=== PATIENT | female | born 1955 | race Caucasian/White ===

== ENCOUNTER 2019-03-22 13:12 | Outpatient (CLI) | payer BC | END 2019-03-22 23:59 | disposition home or self-care (01) | LOC: CFH 13:12 | PROVIDERS: ATTEND Obstetrics & Gynecology Gynecology | DX: Z12.31 Encounter for screening mammogram for malignant neoplasm of breast (principal) | CPT/HCPCS: 77067 ==

== ENCOUNTER → 2020-03-12 | Outpatient (CLI) | payer BC | END | disposition home or self-care (01) | LOC: CFH 08:59 | PROVIDERS: ATTEND Internal Medicine | DX: M51.37 Other intervertebral disc degeneration, lumbosacral region (principal); M47.817 Spondylosis without myelopathy or radiculopathy, lumbosacral region; M85.88 Other specified disorders of bone density and structure, other site; M48.07 Spinal stenosis, lumbosacral region; M43.17 Spondylolisthesis, lumbosacral region; M41.86 Other forms of scoliosis, lumbar region | CPT/HCPCS: 72100; 72131; 77080 ==

== ENCOUNTER 2020-04-02 12:31 | Outpatient (CLI) | payer BC | END 2020-04-02 23:59 | disposition home or self-care (01) | LOC: CFH 12:31 | PROVIDERS: ATTEND Obstetrics & Gynecology Gynecology | DX: Z12.31 Encounter for screening mammogram for malignant neoplasm of breast (principal) | CPT/HCPCS: 77063; 77067 ==

== ENCOUNTER 2021-03-06 12:31 | Inpatient (IN) | payer BC ==
[~2021-03-06] VITALS: Ht 162.6 cm; Wt 119.8 kg
--- NOTE | 2021-03-06 13:01 | NUR ---
PT CAME IN CO "SHARP PAIN BETWEEN MY BREASTS THAT STARTED LAST NIGHT BUT MELANIE HAD THIS BEFORE OF THE PAST COUPLE OF MONTHS". PT RESTING IN [facility]. EKG COMPLETE. CONNECTED TO MONITORING EQUIPMENT
[2021-03-06] MEDS ORDERED: ASPIRIN 81 MG TABLET CHEW ONE (13:04)
[2021-03-06 13:19] LABS: BASOPHILS % (AUTO) 1 % (0-1); EOSINOPHILS % (AUTO) 1 % (1-7); LYMPHOCYTES % (AUTO) 24 % (22-44); MEAN CORPUSCULAR HEMOGLOBIN 29.6 pg (27.0-34.8); MEAN CORPUSCULAR HGB CONC 33.5 g/dL (32.4-35.8); MEAN PLATELET VOLUME 8.2 fL (7.4-10.4); MONOCYTES % (AUTO) 6 % (2-9); NEUTROPHILS % (AUTO) 68 % (42-75); PLATELET COUNT 230 x10^3/uL (130-400); RED BLOOD COUNT 4.79 x10^6/uL (3.82-5.3)
[2021-03-06 13:26] LABS: ALANINE AMINOTRANSFERASE 23 U/L (12-78); ALBUMIN 3.1 g/dL (3.4-5.0); ANION GAP 6 mmol/L (5-15); CALCIUM 9.7 mg/dL (8.5-10.1); CHLORIDE 99 mmol/L (98-107); CREATININE 0.96 mg/dL (0.55-1.02)
[2021-03-06] MEDS ORDERED: ASPIRIN 81 MG TABLET CHEW PO ONE (13:30)
[2021-03-06 13:31] LABS: ALKALINE PHOSPHATASE 68 U/L (45-117); BILIRUBIN,TOTAL 0.6 mg/dL (0.2-1.0); TROPONIN I 0.019 ng/mL (0.000-0.045)
--- NOTE | 2021-03-06 13:37 | NUR ---
US IN WITH PT.
[2021-03-06 13:43] LABS: MICROSCOPIC NOT IND
[2021-03-06 14:00] LABS: PH, VENOUS 7.385 pH (7.320-7.420)
[2021-03-06] MEDS ORDERED: SODIUM CHLORIDE 0.9% 1,000ML IVBOLUS ONE (14:00)
[2021-03-06 14:01] LABS: O2 FLOW ROOM AIR L/min
--- NOTE | 2021-03-06 14:13 | NUR ---
covid test sent to lab. iv started. fluids infusing
[2021-03-06 14:47] LABS: ACETONE, SERUM Small (20mg/dL) (Negative)
[2021-03-06 15:44] VITALS: BP 138/88
[2021-03-06] MEDS ORDERED: LEVO75TA PO (17:50)
[2021-03-06 17:52] VITALS: BP 138/88
[2021-03-06] MEDS ORDERED: METF-688 PO (17:52)
[2021-03-06] MEDS ORDERED: ASPI81TA45 PO (18:07)
[2021-03-06] MEDS ORDERED: ONDANSETRON ODT 4 MG PO PRN (19:00)
[2021-03-06] MEDS ORDERED: hydrALAzine 20 MG/ML, 1ML IVPush PRN (19:00)
[2021-03-06] MEDS ORDERED: morphine SULFATE 10 MG/ML, 1ML IVPush PRN (19:00)
[2021-03-06] MEDS ORDERED: LORazepam 0.5MG TABLET PO PRN (19:00)
[2021-03-06] MEDS ORDERED: HYDROcodone/APAP 5/325 TABLET PO PRN (19:00)
[2021-03-06] MEDS ORDERED: NITROGLYCERIN 0.4 MG BOTTLE (25 TABS) SL PRN (19:00)
[2021-03-06] MEDS ORDERED: BISACODYL 10 MG SUPP PR PRN (19:00)
[2021-03-06] MEDS ORDERED: MELATONIN 5 MG TABLET PO PRN (19:00)
[2021-03-06] MEDS ORDERED: ACETAMINOPHEN 325 MG TABLET PO PRN (19:00)
[2021-03-06] MEDS ORDERED: ONDANSETRON 2MG/ML, 2ML IVPush PRN (19:00)
[2021-03-06] MEDS: ENOXAPARIN 40 MG/0.4 ML SQ SCH (19:47)
[2021-03-06] MEDS: POLYETHYLENE GLYCOL 17 GM PACKET PO SCH (19:48)
[2021-03-06 19:59] LABS: TROPONIN I < 0.015 ng/mL (0.000-0.045)
[2021-03-06] MEDS: INSULIN LISPRO 100 UNITS/ML, PEN SQ-INSULIN SCH (19:59)
[2021-03-06] MEDS: INSULIN GLARGINE 100 UNITS/ML, PEN SQ-INSULIN SCH (19:59)
[2021-03-06 20:00] VITALS: BP 126/76
[2021-03-06] MEDS ORDERED: OMNIPAQUE 350 MG/ML, 100ML BOTTLE ONE (20:48)
[2021-03-06 22:30] VITALS: BP 146/93
[2021-03-07 01:34] LABS: TROPONIN I 0.019 ng/mL (0.000-0.045)
[2021-03-07 03:00] VITALS: BP 128/72
[2021-03-07] MEDS: LEVOTHYROXINE 125 MCG TABLET PO SCH (05:34)
[2021-03-07 05:43] LABS: BASOPHILS % (AUTO) 1 % (0-1); EOSINOPHILS % (AUTO) 2 % (1-7); LYMPHOCYTES % (AUTO) 38 % (22-44); MEAN CORPUSCULAR HEMOGLOBIN 29.7 pg (27.0-34.8); MEAN CORPUSCULAR HGB CONC 33.6 g/dL (32.4-35.8); MEAN PLATELET VOLUME 8.2 fL (7.4-10.4); MONOCYTES % (AUTO) 7 % (2-9); NEUTROPHILS % (AUTO) 52 % (42-75); PLATELET COUNT 219 x10^3/uL (130-400); RED BLOOD COUNT 4.69 x10^6/uL (3.82-5.3); RED CELL DISTRIBUTION WIDTH 13.9 % (9.6-15.2)
[2021-03-07 05:54] LABS: CALCIUM 9.6 mg/dL (8.5-10.1); CHLORIDE 105 mmol/L (98-107); TROPONIN I 0.023 ng/mL (0.000-0.045)
[2021-03-07] MEDS: INSULIN LISPRO 100 UNITS/ML, PEN SQ-INSULIN SCH ×4 (05:57→20:38)
[2021-03-07] MEDS: ASPIRIN 325 MG TABLET EC PO SCH (05:59)
[2021-03-07] MEDS ORDERED: LEVOTHYROXINE 200 MCG TABLET PO SCH (06:00)
[2021-03-07] MEDS ORDERED: LEVOTHYROXINE 50 MCG TABLET PO SCH (06:00)
[2021-03-07 06:06] LABS: ALANINE AMINOTRANSFERASE 22 U/L (12-78); ALBUMIN 2.8 g/dL (3.4-5.0); ALKALINE PHOSPHATASE 58 U/L (45-117); ANION GAP 5 mmol/L (5-15); BILIRUBIN,TOTAL 0.5 mg/dL (0.2-1.0); CHOL/HDL RATIO 2.7; CHOLESTEROL, TOTAL 148 mg/dL (140-239); HDL CHOL % 36 % (28-40); HDL CHOLESTEROL (DIRECT) 54 mg/dL (40-60); LDL CHOLESTEROL,CALCULATED 66 mg/dL (54-169); LDL/HDL RATIO 1.2 (0.5-3.0); TOTAL PROTEIN 6.4 g/dL (6.4-8.2); TRIGLYCERIDES 138 mg/dL (50-200); VLDL CHOLESTEROL 28 mg/dL (0-25)
[2021-03-07] MEDS: POLYETHYLENE GLYCOL 17 GM PACKET PO SCH ×4 (07:58→23:22)
[2021-03-07] MEDS: PANTOPRAZOLE 40MG TABLET PO SCH (08:08)
[2021-03-07] MEDS: ENOXAPARIN 40 MG/0.4 ML SQ SCH ×2 (08:08→20:37)
[2021-03-07] MEDS: SENNA/DOCUSATE TABLET PO SCH (08:08)
[2021-03-07 08:27] VITALS: BP 116/78
[2021-03-07] MEDS ORDERED: MAGNESIUM CITRATE 300ML ORAL SOL PO PRN (08:30)
[2021-03-07] MEDS ORDERED: REGADENOSON 0.4 MG/5 ML SYRINGE ONE (12:21)
[2021-03-07] MEDS: INSULIN GLARGINE 100 UNITS/ML, PEN SQ-INSULIN SCH ×2 (14:46→20:38)
[2021-03-07 14:53] VITALS: BP 126/83
[2021-03-07 15:00] VITALS: BP 105/69
[2021-03-07 19:17] VITALS: BP 122/80
[2021-03-07] MEDS ORDERED: ATORVASTATIN 20 MG TABLET PO SCH (21:00)
[2021-03-08 00:09] VITALS: BP 100/67
[2021-03-08] MEDS: LEVOTHYROXINE 125 MCG TABLET PO SCH (06:31)
[2021-03-08] MEDS: PANTOPRAZOLE 40MG TABLET PO SCH (06:32)
[2021-03-08] MEDS: ASPIRIN 325 MG TABLET EC PO SCH (06:32)
[2021-03-08 07:43] VITALS: BP 100/62
[2021-03-08] MEDS: ENOXAPARIN 40 MG/0.4 ML SQ SCH (08:12)
[2021-03-08] MEDS: INSULIN GLARGINE 100 UNITS/ML, PEN SQ-INSULIN SCH (08:12)
[2021-03-08] MEDS: INSULIN LISPRO 100 UNITS/ML, PEN SQ-INSULIN SCH ×3 (08:13→16:29)
[2021-03-08] MEDS ORDERED: INSULIN GLARGINE 100 UNITS/ML, PEN SQ-INSULIN SCH (08:30)
[2021-03-08] MEDS: SENNA/DOCUSATE TABLET PO SCH (08:56)
[2021-03-08] MEDS: POLYETHYLENE GLYCOL 17 GM PACKET PO SCH ×2 (08:56→16:22)
[2021-03-08] MEDS ORDERED: MAGNESIUM HYDROXIDE 8%, 30ML UDC PO SCH (12:30)
[2021-03-08 12:34] VITALS: BP 110/64
[2021-03-08] MEDS ORDERED: INSU100I11 SQ-INSULIN (13:47)
[2021-03-08] MEDS ORDERED: SENN-211 PO (13:47)
[2021-03-08] MEDS ORDERED: POLY17PO5 PO (13:47)
[2021-03-08] MEDS ORDERED: INSU100I13 SQ-INSULIN ×2 (13:47)
[2021-03-08] MEDS ORDERED: LEVO125T PO (13:47)
[2021-03-08] MEDS ORDERED: METF500S5 PO (13:52)
== END 2021-03-08 17:34 | disposition home or self-care (01) | DRG 639 ==
LOC: ED 12:34 → EDIP 14:17 → 5SO 15:24
PROVIDERS: ADMIT Hospitalist; ATTEND Internal Medicine
DX: E11.65 Type 2 diabetes mellitus with hyperglycemia (principal); E78.00 Pure hypercholesterolemia, unspecified; D17.9 Benign lipomatous neoplasm, unspecified; E78.5 Hyperlipidemia, unspecified; E89.0 Postprocedural hypothyroidism; I25.10 Atherosclerotic heart disease of native coronary artery without angina pectoris; I25.2 Old myocardial infarction; K59.09 Other constipation; Z20.822 Contact with and (suspected) exposure to COVID-19; Z90.49 Acquired absence of other specified parts of digestive tract; Z91.11 Patient's noncompliance with dietary regimen; R51.9 Headache, unspecified; D64.9 Anemia, unspecified
CPT/HCPCS: 36415; 71045; 71275; 78452; 80053; 80061; 81003; 82010; 82803; 82947; 82962; 83036; 83735; 83930; 84443; 84484; 85025; 87635; 93005; 93017; 93306; 93970; 96360; G0378; J1650; J2785; Q9967; A9502; C9898; J1815; J7030

== ENCOUNTER 2021-04-07 13:27 | Outpatient (CLI) | payer BC ==
[~2021-04-07 13:27] MED LIST: ASPI81TA45 PO; INSU100I11 SQ-INSULIN; INSU100I13 SQ-INSULIN; LEVO125T PO; LEVO75TA PO; METF-688 PO; METF500S5 PO; POLY17PO5 PO; SENN-211 PO
== END 2021-04-07 23:59 | disposition home or self-care (01) ==
LOC: CFH 13:27
PROVIDERS: ATTEND Internal Medicine
DX: Z12.31 Encounter for screening mammogram for malignant neoplasm of breast (principal); N64.89 Other specified disorders of breast
CPT/HCPCS: 77063; 77067

== ENCOUNTER 2021-04-09 19:53 | Emergency (ER) | payer BC ==
[~2021-04-09] VITALS: Ht 160 cm; Wt 116.3 kg
[2021-04-09] MEDS ORDERED: PLEASE ENTER HEIGHT AND WEIGHT MC SCH (21:00)
[2021-04-09] MEDS ORDERED: SODIUM CHLORIDE 0.9% 1,000ML IVBOLUS ONE (21:30)
[2021-04-09] MEDS ORDERED: SODIUM CHLORIDE FLUSH 10ML SYR IVF ONE (21:30)
--- NOTE | 2021-04-09 21:43 | NUR ---
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
[2021-04-09 21:59] LABS: BASOPHILS % (AUTO) 1 % (0-1); EOSINOPHILS % (AUTO) 1 % (1-7); LYMPHOCYTES % (AUTO) 15 % (22-44); MEAN CORPUSCULAR HEMOGLOBIN 29.4 pg (27.0-34.8); MEAN CORPUSCULAR HGB CONC 33.2 g/dL (32.4-35.8); MONOCYTES % (AUTO) 14 % (2-9); NEUTROPHILS % (AUTO) 69 % (42-75); PLATELET COUNT 207 x10^3/uL (130-400); RED BLOOD COUNT 4.67 x10^6/uL (3.82-5.3); RED CELL DISTRIBUTION WIDTH 13.8 % (9.6-15.2)
[2021-04-09 22:11] LABS: CHLORIDE 103 mmol/L (98-107)
[2021-04-09 22:17] LABS: ALANINE AMINOTRANSFERASE 24 U/L (12-78); ALBUMIN 3.2 g/dL (3.4-5.0); ALKALINE PHOSPHATASE 61 U/L (45-117); ANION GAP 5 mmol/L (5-15); BILIRUBIN,TOTAL 0.4 mg/dL (0.2-1.0); CALCIUM 8.9 mg/dL (8.5-10.1); CREATININE 0.71 mg/dL (0.55-1.02); TOTAL PROTEIN 7.2 g/dL (6.4-8.2)
[2021-04-09 23:01] VITALS: BP 120/66
== END 2021-04-09 23:25 | disposition home or self-care (01) ==
LOC: ED 21:45
DX: U07.1 COVID-19 (principal); J06.9 Acute upper respiratory infection, unspecified; E11.65 Type 2 diabetes mellitus with hyperglycemia; B34.9 Viral infection, unspecified; R94.31 Abnormal electrocardiogram [ECG] [EKG]; I10 Essential (primary) hypertension; E78.00 Pure hypercholesterolemia, unspecified; Z90.49 Acquired absence of other specified parts of digestive tract
CPT/HCPCS: 36415; 71045; 80053; 85025; 93005; 96360; 99285; J7030; U0003; U0005